=== PATIENT | female | born 2000 | race Caucasian/White ===

== ENCOUNTER 2020-07-12 09:34 | Emergency (ER) | payer OTHER, MEDICAID ==
[~2020-07-12] VITALS: Ht 165.1 cm; Wt 52.2 kg
[~2020-07-12 09:34] MED LIST: ACCUNEB SO1.25 MG/1; CRUTCHES MISCELL; IBUPROFEN 400400 M2 PO; KNEE STABILIZE1 EACH MC; NORCO 5-325 TA1 EAC1 PO; PULMICORT0.25 MG/3; SERTRALINE HCL50 MG PO; TRAZODONE HCL50 MG PO
[2020-07-12] MEDS ORDERED: CENTANY30 GM TOP (10:21)
[2020-07-12] MEDS ORDERED: AUGMENTIN 875-1 EACH PO (10:21)
[2020-07-12 10:35] VITALS: BP 141/88
== END 2020-07-12 10:36 | disposition home or self-care (01) ==
LOC: M.ERS 09:34
DX: S61.213A Laceration without foreign body of left middle finger without damage to nail, initial encounter (principal); W55.01XA Bitten by cat, initial encounter; Y93.89 Activity, other specified; Y92.89 Other specified places as the place of occurrence of the external cause; Y99.8 Other external cause status